=== PATIENT | female | born 1960 | race American Indian/Alaskan Native ===

== ENCOUNTER 2017-09-21 17:56 | Emergency (ER) | payer OTHER ==
[2017-09-21 18:55] VITALS: BP 162/93
[2017-09-22] MEDS ORDERED: TYLENOL ONE (03:28)
[2017-09-22] MEDS ORDERED: TYLENOL PO ONE (03:30)
--- NOTE | 2017-09-22 04:58 | Emergency Department Report ---
Minor Respiratory - HPI Chief Complaint: Upper Respiratory Infection Stated Complaint: FEEL HORRIBLE Time Seen by Provider: 09/22/17 04:06 Duration: 2 Days Pain Location: Throat Severity: moderate Minor Respiratory: Yes Rhinorrhea, Yes Sore Throat, Yes Able to Tolerate Fluids , Yes Cough, Yes Sick Contacts, Yes Fever, No Ear Pain, No Hemoptysis, No Chest Pain, No Shortness of Breath Other History: This is a 57 y.o. female presents with body aches, cough, and congestion for 2 days. Patient [place] was in [place] when symptoms started this past weekend. She started taking tylenol and cough medicine without improvement. History of HTN, medication last taken Wednesday. ED Review of Systems ROS: Stated complaint: FEEL HORRIBLE Other details as noted in HPI Constitutional: see HPI, chills, fever, malaise. denies: diaphoresis, weakness ENT: throat pain, congestion. denies: ear pain, dental pain, hearing loss Respiratory: cough. denies: shortness of breath, wheezing Cardiovascular: denies: chest pain, palpitations Gastrointestinal: denies: abdominal pain, nausea, diarrhea Musculoskeletal: myalgia (genearlized body aches) Neurological: denies: headache, weakness, paresthesias ED Past Medical Hx - Past Medical History Previous Medical History?: Yes Hx Hypertension: Yes - Surgical History Past Surgical History?: Yes Hx Breast Surgery: Yes (Left breast cyst removed) Additional Surgical History: neck surgery, bunion removed from right foot, Partial hysterectomy, - Social History Smoking Status: Never Smoker Substance Use Type: Non Opiate Pain, Prescribed - Medications Home Medications: Home Medications Medication Instructions Recorded Confirmed Last Taken Type Naproxen [Naprosyn] 500 mg PO BID #30 tablet 06/05/15 Unknown Rx methylPREDNISolone [Medrol Dose 4 mg PO QDAY 6 Days pack 06/05/15 Unknown Rx Jimmy] traMADol [Ultram 50 MG tab] 50 mg PO Q6HR PRN #30 tablet 06/05/15 Unknown Rx Benzonatate 200 mg PO TID PRN #30 capsule 09/22/17 Unknown Rx Fluticasone [Flonase] 1 spray NS QDAY #1 bottle 09/22/17 Unknown Rx Oseltamivir [Tamiflu] 75 mg PO BID 5 Days #10 cap 09/22/17 Unknown Rx Minor Respiratory Exam - Exam General: Vital signs noted. No distress. Alert and acting appropriately. HEENT: Yes Pharyngeal Erythema, Yes Moist Mucous Membranes, Yes Rhinorrhea ( turbinates red and swollen, clear discharge), No Pharyngeal Exudates, No Conjuctival Injection, No Frontal Tenderness, No Maxillary Tenderness Ear: Neither TM Bulge, Neither TM Erythema, Neither EAC Pain, Neither EAC Discharge Neck: Yes Supple, No Adenopathy Lungs: Yes Good Air Exchange, Yes Cough, No Wheezes, No Ronchi, No Stridor, No Labored Respirations, No Retractions, No Use of Accessory Muscles, No Other Abnormal Lung Sounds Heart: Yes Regular, No Murmur Abdomen: Yes Normal Bowel Sounds, No Tenderness, No Peritoneal Signs Skin: No Rash, No Edema Neurologic: Alert and oriented, no deficits. Musculoskeletal: Unremarkable. ED Course Vital Signs 09/21/17 18:51 Temperature 99.1 F Pulse Rate 99 H Respiratory 20 Rate Blood Pressure 162/93 O2 Sat by Pulse 96 Oximetry ED Medical Decision Making - Radiology Data This is a 57 y.o. female presents with sore throat, cough, and body aches for 2 days. She is taking tylenol and cough medicine with minimal improvement. Denies SOB, wheezing, nausea, vomiting, and abdominal pain. Non-toxic appearing. History of HTN, BP meds taken Wednesday prior to coming to ER. Patient takes benicar Review Physical Assessment. Susceptible of influenza, viral syndrome. Discharged home. Patient request tamiflu. Encouraged to increase fluids, rest, and treat symptoms. Critical care attestation.: If time is entered above; I have spent that time in minutes in the direct care of this critically ill patient, excluding procedure time. ED Disposition Clinical Impression: Viral syndrome Hypertension Qualifiers: Hypertension type: essential hypertension Qualified Code(s): I10 - Essential ( primary) hypertension Disposition: -01 TO HOME OR SELFCARE Is pt being admited?: No Does the pt Need Aspirin: No Condition: Stable Instructions: Upper Respiratory Infection (ED), Viral Syndrome (ED), Hypertension (ED), Cold Symptoms (ED) Additional Instructions: Increase fluid intake and rest. Wash hands frequently. Take tylenol or ibuprofen every 6 hours for fever. Follow up with Primary Care Provider if fever, SOB, chest pain, or N/V not improved. Prescriptions: Benzonatate 200 mg PO TID PRN #30 capsule PRN Reason: Cough Fluticasone [Flonase] 1 spray NS QDAY #1 bottle Oseltamivir [Tamiflu] 75 mg PO BID 5 Days #10 cap Referrals: ROBERT DURHAM MD [Staff Physician] - 3-5 Days QUINTIN VEGA MD [Staff Physician] - 3-5 Days Forms: Work/School Release Form(ED) Time of Disposition: 05:07 Print Language: SWAZI
== END 2017-09-22 05:20 | disposition home or self-care (01) ==
LOC: ED 17:56
DX: B34.9 Viral infection, unspecified (principal); I10 Essential (primary) hypertension
CPT/HCPCS: 99282

== ENCOUNTER 2020-11-15 10:05 | Outpatient (CLI) | payer OTHER ==
--- NOTE | 2020-11-15 11:59 | XRay Report ---
CERVICAL SPINE 6 VIEWS INDICATION / CLINICAL INFORMATION: NECK PAIN. COMPARISON: CT cervical spine 06/05/2015 FINDINGS: VERTEBRAE: No acute fracture. No significant malalignment. Postsurgical changes at the posterior iliamna ents of C1-C2 with cerclage wire stable cyst prior exam. DISC SPACES / FACET JOINTS:Moderate multilevel degenerative changes are noted of the cervical spine w ith loss of intervertebral disc height and marginal osteophyte formation most prominent at C4-C5 and C5-C6. These findings are minimally worsened since prior 2015 CT scan. PARASPINAL SOFT TISSUES:No significant abnormality. ADDITIONAL FINDINGS: None. Signer Name: Arjun Alvarado MD Signed: 11/15/2020 11:55 AM Workstation Name: [id number]
== END 2020-11-15 10:06 | disposition home or self-care (01) ==
LOC: XRAY 10:05
PROVIDERS: ATTEND Internal Medicine
DX: M47.812 Spondylosis without myelopathy or radiculopathy, cervical region (principal); M25.78 Osteophyte, vertebrae
CPT/HCPCS: 72040